=== PATIENT | male | born 1945 | race Two or more races ===

== ENCOUNTER 2020-07-02 19:08 | Emergency (ER) | payer MEDICARE ==
[~2020-07-02] VITALS: Ht 177.8 cm; Wt 74.2 kg
[~2020-07-02 19:08] MED LIST: AMLO-150 PO; ATOR40TA PO; AZIT500T10 PO; BENA10TA59 PO; BENA40TA3 PO; CEFD300C37 PO; CLOP75TA52 PO; LATA2.5D3 EACHEYE; METO50TA82 PO; ONDA4TAB13 SL
--- NOTE | 2020-07-02 20:06 | NUR ---
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
--- NOTE | 2020-07-02 20:48 | NUR ---
Patient presents to ER c/o nausea, CHARLES, and fever for a few days. Patient states the symptoms resided for a day then came back today. Patient self admin Tylenol today around 1400. Patient is in NAD. Respirations even and unlabored. Patient is shaking, stating he is cold. Patient is febrile.
[2020-07-02] MEDS ORDERED: SODIUM CHLORIDE 0.9% 1,000 ML IV ONE (20:55)
[2020-07-02] MEDS ORDERED: ACETAMINOPHEN 500 MG TABLET ONE (20:58)
[2020-07-02] MEDS ORDERED: SODIUM CHLORIDE FLUSH 10ML SYR IVF ONE (21:00)
[2020-07-02] MEDS ORDERED: ACETAMINOPHEN 500 MG TABLET PO ONE (21:00)
[2020-07-02] MEDS ORDERED: SODIUM CHLORIDE 0.9% 1,000ML IVBOLUS ONE (21:00)
[2020-07-02 21:07] LABS: BASOPHILS # (AUTO) 0.04 x10^3/uL (0-0.1); BASOPHILS % (AUTO) 0 % (0-1); EOSINOPHILS % (AUTO) 0 % (1-7); LYMPHOCYTES # (AUTO) 0.86 x10^3/uL (1-3.4); LYMPHOCYTES % (AUTO) 5 % (22-44); MD NO; MEAN CORPUSCULAR HEMOGLOBIN 33.4 pg (27.5-34.5); MEAN CORPUSCULAR HGB CONC 33.4 g/dL (33.2-36.2); MEAN PLATELET VOLUME 8.1 fL (7.4-10.4); MONOCYTES # (AUTO) 1.06 x10^3/uL (0.2-0.8); MONOCYTES % (AUTO) 7 % (2-9); NEUTROPHILS # (AUTO) 14.25 x10^3/uL (1.8-6.8); NEUTROPHILS % (AUTO) 88 % (42-75); PLATELET COUNT 200 x10^3/uL (130-400); RED BLOOD COUNT 4.73 x10^6/uL (4.38-5.82); RED CELL DISTRIBUTION WIDTH 13.4 % (9.4-14.8)
[2020-07-02] MEDS ORDERED: ONDANSETRON 2MG/ML, 2ML ONE (21:07)
[2020-07-02 21:16] LABS: ALANINE AMINOTRANSFERASE 58 U/L (12-78); ALBUMIN 3.9 g/dL (3.4-5.0); ANION GAP 8 mmol/L (5-15); CALCIUM 9.2 mg/dL (8.5-10.1); CHLORIDE 109 mmol/L (98-107); CREATININE 1.21 mg/dL (0.7-1.3)
[2020-07-02 21:19] LABS: ALKALINE PHOSPHATASE 128 U/L (45-117); BILIRUBIN,TOTAL 1.1 mg/dL (0.2-1.0); TOTAL PROTEIN 7.8 g/dL (6.4-8.2)
[2020-07-02] MEDS ORDERED: ONDANSETRON 2MG/ML, 2ML IVPush ONE (21:30)
[2020-07-02 22:49] LABS: MICROSCOPIC AUTO
[2020-07-02] MEDS ORDERED: CEFTRIAXONE PMX 1GM/50ML 50 ML ONE (23:04)
[2020-07-02] MEDS ORDERED: CEFTRIAXONE PMX 1GM/50ML 50 ML IV ONE (23:30)
[2020-07-03 00:07] VITALS: BP 107/54
--- NOTE | 2020-07-03 00:07 | NUR ---
Task RN: PIV removed, abx completed. Patient given discharge instructions and they have confirmed that they understand the instructions. Patient ambulatory with steady gait.
== END 2020-07-03 00:16 | disposition home or self-care (01) ==
LOC: ED 21:50
DX: R50.9 Fever, unspecified (principal); Z20.828 Contact with and (suspected) exposure to other viral communicable diseases; E86.0 Dehydration; R11.0 Nausea; R51 Headache; R00.0 Tachycardia, unspecified; F17.210 Nicotine dependence, cigarettes, uncomplicated
CPT/HCPCS: 36415; 71045; 80053; 81001; 83605; 84145; 85025; 87040; 87077; 87181; 87635; 93005; 96365; 96375; 99285; 99406; J0696; J2405; J7030

== ENCOUNTER → 2021-03-09 | Outpatient (CLI) | payer MEDICARE ==
[~2021-03-09] MED LIST changes: +ERTA1VIA4 IV; -LATA2.5D3 EACHEYE; +LATA2.5D4 EACHEYE
== END | disposition home or self-care (01) ==
LOC: CFH 13:44
PROVIDERS: ATTEND Nurse Practitioner
DX: Z12.2 Encounter for screening for malignant neoplasm of respiratory organs (principal); R91.1 Solitary pulmonary nodule; I77.810 Thoracic aortic ectasia; I25.10 Atherosclerotic heart disease of native coronary artery without angina pectoris; Z87.891 Personal history of nicotine dependence
CPT/HCPCS: 71271